=== PATIENT | female | born 1990 ===

== ENCOUNTER 2019-09-11 07:43 | Observation (INO) | payer MEDICAID ==
[2019-09-11 08:34] LABS: Basophils % (Auto) 0.3 % (0.0-1.8); Eosinophils # (Auto) 0.1 K/mm3 (0.0-0.4); Eosinophils % (Auto) 1.7 % (0.0-4.3); Hematocrit 33.3 % (30.3-42.9); Lymphocytes # (Auto) 0.9 K/mm3 (1.2-5.4); Lymphocytes % (Auto) 15.9 % (13.4-35.0); Mean Corpuscular HGB Conc 33 % (30-34); Mean Corpuscular Volume 87 fl (79-97); Monocytes # (Auto) 0.4 K/mm3 (0.0-0.8); Platelet Count 271 K/mm3 (140-440); Red Blood Count 3.85 M/mm3 (3.65-5.03); Red Cell Distribution Width 14.3 % (13.2-15.2)
[2019-09-11 08:35] LABS: Bacteria,Urine 1+ /HPF (Negative); Bilirubin,Urine NEG (Negative); Blood,Urine MOD (Negative); Color,Urine Yellow (Yellow); Mucus,Urine 3+ /HPF; Urobilinogen,Urine < 2.0 mg/dL (<2.0)
--- NOTE | 2019-09-11 08:49 | Event Note ---
Date of service: 09/11/19 Face to Face: 29-year-old female, reportedly G3, P2, morbidly obese, presenting with right flank pain, nausea, dysuria, appears to be quite uncomfortable, vaginal bleeding, suspicious for pyelonephritis. Laboratory studies reviewed and appreciated. Ultrasound reviewed and appreciated. Recommend admission for IV antibiotics, pain control, symptom control. Discussed with physician shampoo assistant, admission has been arranged. Discussed plan of care with patient, who is amenable. Right upper quadrant ultrasound, right-sided kidney ultrasound negative for acute findings. Vital Signs 09/11/19 09/11/19 09/11/19 07:50 09:48 10:38 Temperature 97.8 F Pulse Rate 85 Respiratory 20 22 18 Rate Blood Pressure 116/73 Blood Pressure [Right] O2 Sat by Pulse 100 Oximetry 09/11/19 11:00 Temperature Pulse Rate 80 Respiratory 16 Rate Blood Pressure Blood Pressure 110/68 [Right] O2 Sat by Pulse 98 Oximetry Lab Results 09/11/19 09/11/19 09/11/19 Range/Units 08:09 08:09 08:09 WBC 5.9 (4.5-11.0) K/mm3 RBC 3.85 (3.65-5.03) M/mm3 Hgb 11.0 (10.1-14.3) gm/dl Hct 33.3 (30.3-42.9) % MCV 87 (79-97) fl MCH 29 (28-32) pg MCHC 33 (30-34) % RDW 14.3 (13.2-15.2) % Plt Count 271 (140-440) K/mm3 Lymph % (Auto) 15.9 (13.4-35.0) % [place] % (Auto) 7.0 (0.0-7.3) % Eos % (Auto) 1.7 (0.0-4.3) % Baso % (Auto) 0.3 (0.0-1.8) % Lymph # 0.9 L (1.2-5.4) K/mm3 [place] # 0.4 (0.0-0.8) K/mm3 Eos # 0.1 (0.0-0.4) K/mm3 Baso # 0.0 (0.0-0.1) K/mm3 Seg Neutrophils % 75.1 H (40.0-70.0) % Seg Neutrophils # 4.5 (1.8-7.7) K/mm3 Sodium (137-145) mmol/L Potassium (3.6-5.0) mmol/L Chloride (98-107) mmol/L Carbon Dioxide (22-30) mmol/L Anion Gap mmol/L BUN (7-17) mg/dL Creatinine (0.7-1.2) mg/dL Estimated GFR ml/min BUN/Creatinine Ratio % Glucose (65-100) mg/dL Lactic Acid (0.7-2.0) mmol/L Calcium (8.4-10.2) mg/dL Magnesium (1.7-2.3) mg/dL Total Bilirubin (0.1-1.2) mg/dL Direct Bilirubin (0-0.2) mg/dL Indirect Bilirubin mg/dL AST (5-40) units/L ALT (7-56) units/L Alkaline Phosphatase (35-129) units/L Total Creatine Kinase (30-135) units/L Total Protein (6.3-8.2) g/dL Albumin (3.9-5) g/dL Albumin/Globulin Ratio % HCG, Quant 45377 H (0-4) mIU/mL Urine Color (Yellow) Urine Turbidity (Clear) Urine pH (5.0-7.0) Ur Specific [place] (1.003-1.030) Urine Protein (Negative) mg/dL Urine Glucose (UA) (Negative) mg/dL Urine Ketones (Negative) mg/dL Urine Blood (Negative) Urine Nitrite (Negative) Urine Bilirubin (Negative) Urine Urobilinogen (<2.0) mg/dL Ur Leukocyte Esterase (Negative) Urine WBC (Auto) (0.0-6.0) /HPF Urine RBC (Auto) (0.0-6.0) /HPF U Epithel Cells (Auto) (0-13.0) /HPF Urine Bacteria (Auto) (Negative) /HPF Ur Transition Epith Cell /HPF Urine Mucus /HPF Blood Type A POSITIVE 09/11/19 09/11/19 09/11/19 Range/Units 08:10 09:02 10:23 WBC (4.5-11.0) K/mm3 RBC (3.65-5.03) M/mm3 Hgb (10.1-14.3) gm/dl Hct (30.3-42.9) % MCV (79-97) fl MCH (28-32) pg MCHC (30-34) % RDW (13.2-15.2) % Plt Count (140-440) K/mm3 Lymph % (Auto) (13.4-35.0) % Sierra % (Auto) (0.0-7.3) % Eos % (Auto) (0.0-4.3) % Baso % (Auto) (0.0-1.8) % Lymph # (1.2-5.4) K/mm3 [place] # (0.0-0.8) K/mm3 Eos # (0.0-0.4) K/mm3 Baso # (0.0-0.1) K/mm3 Seg Neutrophils % (40.0-70.0) % Seg Neutrophils # (1.8-7.7) K/mm3 Sodium 136 L (137-145) mmol/L Potassium 3.9 (3.6-5.0) mmol/L Chloride 102.8 (98-107) mmol/L Carbon Dioxide 21 L (22-30) mmol/L Anion Gap 16 mmol/L BUN 9 (7-17) mg/dL Creatinine 0.6 L (0.7-1.2) mg/dL Estimated GFR > 60 ml/min BUN/Creatinine Ratio 15 % Glucose 87 (65-100) mg/dL Lactic Acid (0.7-2.0) mmol/L Calcium 9.2 (8.4-10.2) mg/dL Magnesium 1.90 (1.7-2.3) mg/dL Total Bilirubin < 0.20 (0.1-1.2) mg/dL Direct Bilirubin < 0.2 (0-0.2) mg/dL Indirect Bilirubin 0.0 mg/dL AST 11 (5-40) units/L ALT 7 (7-56) units/L Alkaline Phosphatase 44 (35-129) units/L Total Creatine Kinase 103 (30-135) units/L Total Protein 6.1 L (6.3-8.2) g/dL Albumin 3.3 L (3.9-5) g/dL Albumin/Globulin Ratio 1.2 % HCG, Quant (0-4) mIU/mL Urine Color Yellow (Yellow) Urine Turbidity Slightly-cloudy (Clear) Urine pH 9.0 H (5.0-7.0) Ur Specific [place] 1.018 (1.003-1.030) Urine Protein 100 mg/dl (Negative) mg/dL Urine Glucose (UA) Neg (Negative) mg/dL Urine Ketones Neg (Negative) mg/dL Urine Blood Mod (Negative) Urine Nitrite Neg (Negative) Urine Bilirubin Neg (Negative) Urine Urobilinogen < 2.0 (<2.0) mg/dL Ur Leukocyte Esterase Mod (Negative) Urine WBC (Auto) 134.0 H (0.0-6.0) /HPF Urine RBC (Auto) 93.0 (0.0-6.0) /HPF U Epithel Cells (Auto) 6.0 (0-13.0) /HPF Urine Bacteria (Auto) 1+ (Negative) /HPF Ur Transition Epith Cell 1 /HPF Urine Mucus 3+ /HPF Blood Type 09/11/19 Range/Units 10:23 WBC (4.5-11.0) K/mm3 RBC (3.65-5.03) M/mm3 Hgb (10.1-14.3) gm/dl Hct (30.3-42.9) % MCV (79-97) fl MCH (28-32) pg MCHC (30-34) % RDW (13.2-15.2) % Plt Count (140-440) K/mm3 Lymph % (Auto) (13.4-35.0) % Sierra % (Auto) (0.0-7.3) % Eos % (Auto) (0.0-4.3) % Baso % (Auto) (0.0-1.8) % Lymph # (1.2-5.4) K/mm3 [place] # (0.0-0.8) K/mm3 Eos # (0.0-0.4) K/mm3 Baso # (0.0-0.1) K/mm3 Seg Neutrophils % (40.0-70.0) % Seg Neutrophils # (1.8-7.7) K/mm3 Sodium (137-145) mmol/L Potassium (3.6-5.0) mmol/L Chloride (98-107) mmol/L Carbon Dioxide (22-30) mmol/L Anion Gap mmol/L BUN (7-17) mg/dL Creatinine (0.7-1.2) mg/dL Estimated GFR ml/min BUN/Creatinine Ratio % Glucose (65-100) mg/dL Lactic Acid 1.80 (0.7-2.0) mmol/L Calcium (8.4-10.2) mg/dL Magnesium (1.7-2.3) mg/dL Total Bilirubin (0.1-1.2) mg/dL Direct Bilirubin (0-0.2) mg/dL Indirect Bilirubin mg/dL AST (5-40) units/L ALT (7-56) units/L Alkaline Phosphatase (35-129) units/L Total Creatine Kinase (30-135) units/L Total Protein (6.3-8.2) g/dL Albumin (3.9-5) g/dL Albumin/Globulin Ratio % HCG, Quant (0-4) mIU/mL Urine Color (Yellow) Urine Turbidity (Clear) Urine pH (5.0-7.0) Ur Specific [place] (1.003-1.030) Urine Protein (Negative) mg/dL Urine Glucose (UA) (Negative) mg/dL Urine Ketones (Negative) mg/dL Urine Blood (Negative) Urine Nitrite (Negative) Urine Bilirubin (Negative) Urine Urobilinogen (<2.0) mg/dL Ur Leukocyte Esterase (Negative) Urine WBC (Auto) (0.0-6.0) /HPF Urine RBC (Auto) (0.0-6.0) /HPF U Epithel Cells (Auto) (0-13.0) /HPF Urine Bacteria (Auto) (Negative) /HPF Ur Transition Epith Cell /HPF Urine Mucus /HPF Blood Type Print Report Referring Physician: VENKAT LYNN Patient Name: PHILIPPE SERRANO Date of : 1990 Sex: Female Report Date: 2019-09-11 Report Status: Finalized Findings [facility] [address] [place] [address] Ultrasound Report Signed Patient: PHILIPPE SERRANO MR#: [id number] : 1990 Acct:[id number] Age/Sex: 29 / F ADM Date: 09/11/19 Loc: ED Attending Dr: Ordering Physician: RAFFY LINDA Date of Service: 09/11/19 Procedure(s): US OB >= 14 weeks Fetus Accession Number(s): [id number] cc: RAFFY LINDA OB ULTRASOUND >= 14 WEEKS FETUS INDICATION: Vaginal bleeding for 2 days, pelvic pain COMPARISON: None TECHNIQUE: Transabdominal imaging. FINDINGS: A single gestation intrauterine is present with cephalic presentation. The placenta is anterior, grade 1 and free of the cervical os. heart tones measure 149 bpm. The cervix measures 3.8 cm. Qualitative amniotic fluid volume is normal. anatomical survey was not performed. Biparietal diameter is 4.3 cm which equals 19 weeks 0 days. Head circumference is 16.8 cm which equals 19 weeks 3 days. Abdominal circumference is 13.9 cm which equals 19 weeks 2 days. Femur length is 3.0 cm which equals 19 weeks 2 days. Overall estimated sonographic age is 19 weeks 2 days. HC/AC ratio: 1.21 Cephalic index: 79.7 Estimated weight 284 g. IMPRESSION: Viable single intrauterine as described. No acute abnormality is detected. Signer Name: Prashanth Rothman Jr, MD Signed: 09/11/2019 10:50 AM Workstation Name: [id number] Transcribed By: TTR Dictated By: PRASHANTH ROTHMAN JR, MD Electronically Authenticated By: PRASHANTH ROTHMAN JR, MD Signed Date/Time: 09/11/19 2561
[2019-09-11] MEDS ORDERED: ACETAMINOPEN W/CODEINE 120-12MG ORAL LIQD 5 ML PO ONE (08:56)
[2019-09-11] MEDS ORDERED: SODIUM CHLORIDE 0.9% 1000 ML 1,000 ML IV ONE (08:56)
--- NOTE | 2019-09-11 09:13 | Emergency Department Report ---
ED HPI - General Chief complaint: Vaginal Bleeding Stated complaint: UTI Time Seen by Provider: 09/11/19 08:49 Source: patient Mode of arrival: Wheelchair Limitations: No Limitations - History of Present Illness Initial comments: This is a 29-year-old female at approximately 18 weeks gestation who presents to the ED complaining of pelvic pain that started about a week ago and vaginal spotting that began yesterday.. Patient states that about a week ago she started experiencing some pelvic pain which she does not wear ligament pain but pain got worse yesterday when she started noticing mild vaginal spotting. Patient is followed by [facility] Dr. Jaja Wiseman. Patient is unsure of her last menstrual period as she was on Depo-Provera to getting . Patient states that her last ultrasound was a first trimester trimester ultrasound which was normal. She had no complications with her past 2 pregnancies. Patient denies fevers/chills/nausea vomiting/dysuria - Related Data Allergies Allergy/AdvReac Type Severity Reaction Status Date / Time No Known Allergies Allergy Unverified 09/11/19 07:44 ED Review of Systems ROS: Stated complaint: UTI Other details as noted in HPI Comment: All other systems reviewed and negative ED Past Medical Hx - Past Medical History Previous Medical History?: No - Surgical History Past Surgical History?: No - Social History Smoking Status: Current Every Day Smoker Substance Use Type: None ED Physical Exam - General Limitations: No Limitations General appearance: alert, in no apparent distress - Head Head exam: Present: atraumatic, normocephalic - Eye Eye exam: Present: normal appearance - ENT ENT exam: Present: mucous membranes moist - Neck Neck exam: Present: normal inspection - Respiratory Respiratory exam: Present: normal lung sounds bilaterally. Absent: respiratory distress - Cardiovascular Cardiovascular Exam: Present: regular rate, normal rhythm. Absent: systolic murmur, diastolic murmur, rubs, gallop - GI/Abdominal GI/Abdominal exam: Present: soft, normal bowel sounds - Extremities Exam Extremities exam: Present: normal inspection - Back Exam Back exam: Present: normal inspection, full ROM, CVA tenderness (R), CVA tenderness (L) - Neurological Exam Neurological exam: Present: alert, oriented X3, normal gait - Psychiatric Psychiatric exam: Present: normal affect, normal mood - Skin Skin exam: Present: warm, dry, intact, normal color. Absent: rash ED Course Vital Signs 09/11/19 09/11/19 09/11/19 07:50 09:48 10:38 Temperature 97.8 F Pulse Rate 85 Respiratory 20 22 18 Rate Blood Pressure 116/73 Blood Pressure [Right] O2 Sat by Pulse 100 Oximetry 09/11/19 11:00 Temperature Pulse Rate 80 Respiratory 16 Rate Blood Pressure Blood Pressure 110/68 [Right] O2 Sat by Pulse 98 Oximetry - Reevaluation(s) Reevaluation #1: 09/11/19 10:14 Patient is currently receiving fluids, pain medication. - Consultations Consultation #1: 09/11/19 11:[address] Soler consulted and agreed to accept patient to his service. ED Medical Decision Making - Lab Data Result diagrams: 09/11/19 08:09 09/11/19 09:02 Laboratory Last Values WBC 5.9 K/mm3 (4.5-11.0) 09/11/19 08:09 RBC 3.85 M/mm3 (3.65-5.03) 09/11/19 08:09 Hgb 11.0 gm/dl (10.1-14.3) 09/11/19 08:09 Hct 33.3 % (30.3-42.9) 09/11/19 08:09 MCV 87 fl (79-97) 09/11/19 08:09 MCH 29 pg (28-32) 09/11/19 08:09 MCHC 33 % (30-34) 09/11/19 08:09 RDW 14.3 % (13.2-15.2) 09/11/19 08:09 Plt Count 271 K/mm3 (140-440) 09/11/19 08:09 Lymph % (Auto) 15.9 % (13.4-35.0) 09/11/19 08:09 [place] % (Auto) 7.0 % (0.0-7.3) 09/11/19 08:09 Eos % (Auto) 1.7 % (0.0-4.3) 09/11/19 08:09 Baso % (Auto) 0.3 % (0.0-1.8) 09/11/19 08:09 Lymph # 0.9 K/mm3 (1.2-5.4) L 09/11/19 08:09 [place] # 0.4 K/mm3 (0.0-0.8) 09/11/19 08:09 Eos # 0.1 K/mm3 (0.0-0.4) 09/11/19 08:09 Baso # 0.0 K/mm3 (0.0-0.1) 09/11/19 08:09 Seg Neutrophils % 75.1 % (40.0-70.0) H 09/11/19 08:09 Seg Neutrophils # 4.5 K/mm3 (1.8-7.7) 09/11/19 08:09 Sodium 136 mmol/L (137-145) L 09/11/19 09:02 Potassium 3.9 mmol/L (3.6-5.0) 09/11/19 09:02 Chloride 102.8 mmol/L (98-107) 09/11/19 09:02 Carbon Dioxide 21 mmol/L (22-30) L 09/11/19 09:02 Anion Gap 16 mmol/L 09/11/19 09:02 BUN 9 mg/dL (7-17) 09/11/19 09:02 Creatinine 0.6 mg/dL (0.7-1.2) L 09/11/19 09:02 Estimated GFR > 60 ml/min 09/11/19 09:02 BUN/Creatinine Ratio 15 % 09/11/19 09:02 Glucose 87 mg/dL (65-100) 09/11/19 09:02 Calcium 9.2 mg/dL (8.4-10.2) 09/11/19 09:02 HCG, Quant 07067 mIU/mL (0-4) H 09/11/19 08:09 Urine Color Yellow (Yellow) 09/11/19 08:10 Urine Turbidity Slightly-cloudy (Clear) 09/11/19 08:10 Urine pH 9.0 (5.0-7.0) H 09/11/19 08:10 Ur Specific [place] 1.018 (1.003-1.030) 09/11/19 08:10 Urine Protein 100 mg/dl mg/dL (Negative) 09/11/19 08:10 Urine Glucose (UA) Neg mg/dL (Negative) 09/11/19 08:10 Urine Ketones Neg mg/dL (Negative) 09/11/19 08:10 Urine Blood Mod (Negative) 09/11/19 08:10 Urine Nitrite Neg (Negative) 09/11/19 08:10 Urine Bilirubin Neg (Negative) 09/11/19 08:10 Urine Urobilinogen < 2.0 mg/dL (<2.0) 09/11/19 08:10 Ur Leukocyte Esterase Mod (Negative) 09/11/19 08:10 Urine WBC (Auto) 134.0 /HPF (0.0-6.0) H 09/11/19 08:10 Urine RBC (Auto) 93.0 /HPF (0.0-6.0) 09/11/19 08:10 U Epithel Cells (Auto) 6.0 /HPF (0-13.0) 09/11/19 08:10 Urine Bacteria (Auto) 1+ /HPF (Negative) 09/11/19 08:10 Ur Transition Epith Cell 1 /HPF 09/11/19 08:10 Urine Mucus 3+ /HPF 09/11/19 08:10 Blood Type A POSITIVE 09/11/19 08:09 - Radiology Data Radiology results: report reviewed, image reviewed TECHNIQUE: Transabdominal imaging. FINDINGS: A single gestation intrauterine is present with cephalic presentation. The placenta is anterior, grade 1 and free of the cervical os. heart tones measure 149 bpm. The cervix measures 3.8 cm. Qualitative amniotic fluid volume is normal. anatomical survey was not performed. Biparietal diameter is 4.3 cm which equals 19 weeks 0 days. Head circumference is 16.8 cm which equals 19 weeks 3 days. Abdominal circumference is 13.9 cm which equals 19 weeks 2 days. Femur length is 3.0 cm which equals 19 weeks 2 days. Overall estimated sonographic age is 19 weeks 2 days. HC/AC ratio: 1.21 Cephalic index: 79.7 Estimated weight 284 g. IMPRESSION: Viable single intrauterine as described. No acute abnormality is detected. Signer Name: Prashanth Rothman Jr, MD Signed: 09/11/2019 10:50 AM Workstation Name: [id number] Transcribed By: TTR Dictated By: PRASHANTH ROTHMAN JR, MD Electronically Authenticated By: PRASHANTH ROTHMAN JR, MD Signed Date/Time: 09/11/19 1050 - Medical Decision Making This 29-year-old female presents with pelvic pain in posttussis secondary to acute cystitis/pyelonephritis CBC, BMP within normal limits, urinalysis positive for infection. She is uncomfortable to ED stay complaining of pelvic pain. Patient received pain medication and ED. Case was discussed with Dr. Ariza was suggested admission patient to OB service for observation. - Differential Diagnosis UTI, pyelonephritis, placenta abruption, round ligament pain, placenta prev Critical care attestation.: If time is entered above; I have spent that time in minutes in the direct care of this critically ill patient, excluding procedure time. ED Disposition Clinical Impression: Acute pyelonephritis in second trimester, antepartum, Acute cystitis during , Pelvic pain during in second trimester, antepartum Disposition: 09 OP ADMIT IP TO THIS HOSP Is pt being admited?: Yes Does the pt Need Aspirin: No Condition: Stable
[2019-09-11 09:32] LABS: BUN/Creatinine Ratio 15; Blood Urea Nitrogen 9 mg/dL (7-17); Calcium 9.2 mg/dL (8.4-10.2); Hemolysis Index 6
[2019-09-11] MEDS ORDERED: ONDANSETRON 4 MG/2 ML INJ IV ONE (10:05)
[2019-09-11] MEDS ORDERED: MORPHINE 4 MG/1 ML INJ IV ONE ×3 (10:05→23:17)
[2019-09-11] MEDS ORDERED: cefTRIAXone/NS 1 GM/50 ML 1 GM/50 ML BAG IV ONE (10:10)
--- NOTE | 2019-09-11 10:54 | Ultrasound Report ---
OB ULTRASOUND >= 14 WEEKS FETUS INDICATION: Vaginal bleeding for 2 days, pelvic pain COMPARISON: None TECHNIQUE: Transabdominal imaging. FINDINGS: A single gestation intrauterine is present with cephalic presentation. The placenta is ante rior, grade 1 and free of the cervical os. heart tones measure 149 bpm. The cervix measures 3. 8 cm. Qualitative amniotic fluid volume is normal. anatomical survey was not performed. Biparietal diameter is 4.3 cm which equals 19 weeks 0 days. Head circumference is 16.8 cm which equals 19 weeks 3 days. Abdominal circumference is 13.9 cm which equals 19 weeks 2 days. Femur length is 3.0 cm which equals 19 weeks 2 days. Overall estimated sonographic age is 19 weeks 2 days. HC/AC ratio: 1.21 Cephalic index: 79.7 Estimated weight 284 g. IMPRESSION: Viable single intrauterine as described. No acute abnormality is detected. Signer Name: Prashanth Rothman Jr, MD Signed: 09/11/2019 10:50 AM Workstation Name: [id number]
[2019-09-11 11:09] LABS: Alanine Aminotransferase 7 units/L (7-56); Albumin 3.3 g/dL (3.9-5)
[2019-09-11 11:16] LABS: Bilirubin,Direct < 0.2 mg/dL (0-0.2)
--- NOTE | 2019-09-11 13:23 | Short Stay Summary ---
Short Stay Documentation Date of service: 09/11/19 Narrative H&P: Pt is a 29yo BF LMP ? unknown 19 weeks by u/s today who presents to the ED complaining of pelvic pain that started about a week ago and vaginal spotting that began yesterday.. Patient states that about a week ago she started experiencing some pelvic pain which she thought was due to ligament pain but pain got worse yesterday when she started noticing mild vaginal spotting. Her [facility] [employer] CO[employer]IN[facility] is Dr. Jaja Ramirez. She is unsure of her last menstrual period as she was on Depo-Provera prior to getting . Patient states that her last ultrasound was a first trimester trimester ultrasound which was normal. She had no complications with her past 2 pregnancies, and she denies fevers/chills/nausea vomiting/dysuria. Renal u/s was Negative. Laboratory Tests 09/11/19 09/11/19 09/11/19 08:09 08:09 08:09 WBC 5.9 RBC 3.85 Hgb 11.0 Hct 33.3 MCV 87 MCH 29 MCHC 33 RDW 14.3 Plt Count 271 Lymph % (Auto) 15.9 [place] % (Auto) 7.0 Eos % (Auto) 1.7 Baso % (Auto) 0.3 Lymph # 0.9 L [place] # 0.4 Eos # 0.1 Baso # 0.0 Seg Neutrophils % 75.1 H Seg Neutrophils # 4.5 Sodium Potassium Chloride Carbon Dioxide Anion Gap BUN Creatinine Estimated GFR BUN/Creatinine Ratio Glucose Lactic Acid Calcium Magnesium Total Bilirubin Direct Bilirubin Indirect Bilirubin AST ALT Alkaline Phosphatase Total Creatine Kinase Total Protein Albumin Albumin/Globulin Ratio HCG, Quant 25592 H Urine Color Urine Turbidity Urine pH Ur Specific [place] Urine Protein Urine Glucose (UA) Urine Ketones Urine Blood Urine Nitrite Urine Bilirubin Urine Urobilinogen Ur Leukocyte Esterase Urine WBC (Auto) Urine RBC (Auto) U Epithel Cells (Auto) Urine Bacteria (Auto) Ur Transition Epith Cell Urine Mucus Blood Type A POSITIVE 09/11/19 09/11/19 09/11/19 08:10 09:02 10:23 WBC RBC Hgb Hct MCV MCH MCHC RDW Plt Count Lymph % (Auto) [place] % (Auto) Eos % (Auto) Baso % (Auto) Lymph # [place] # Eos # Baso # Seg Neutrophils % Seg Neutrophils # Sodium 136 L Potassium 3.9 Chloride 102.8 Carbon Dioxide 21 L Anion Gap 16 BUN 9 Creatinine 0.6 L Estimated GFR > 60 BUN/Creatinine Ratio 15 Glucose 87 Lactic Acid Calcium 9.2 Magnesium 1.90 Total Bilirubin < 0.20 Direct Bilirubin < 0.2 Indirect Bilirubin 0.0 AST 11 ALT 7 Alkaline Phosphatase 44 Total Creatine Kinase 103 Total Protein 6.1 L Albumin 3.3 L Albumin/Globulin Ratio 1.2 HCG, Quant Urine Color Yellow Urine Turbidity Slightly-cloudy Urine pH 9.0 H Ur Specific [place] 1.018 Urine Protein 100 mg/dl Urine Glucose (UA) Neg Urine Ketones Neg Urine Blood Mod Urine Nitrite Neg Urine Bilirubin Neg Urine Urobilinogen < 2.0 Ur Leukocyte Esterase Mod Urine WBC (Auto) 134.0 H Urine RBC (Auto) 93.0 U Epithel Cells (Auto) 6.0 Urine Bacteria (Auto) 1+ Ur Transition Epith Cell 1 Urine Mucus 3+ Blood Type 09/11/19 10:23 WBC RBC Hgb Hct MCV MCH MCHC RDW Plt Count Lymph % (Auto) [place] % (Auto) Eos % (Auto) Baso % (Auto) Lymph # [place] # Eos # Baso # Seg Neutrophils % Seg Neutrophils # Sodium Potassium Chloride Carbon Dioxide Anion Gap BUN Creatinine Estimated GFR BUN/Creatinine Ratio Glucose Lactic Acid 1.80 Calcium Magnesium Total Bilirubin Direct Bilirubin Indirect Bilirubin AST ALT Alkaline Phosphatase Total Creatine Kinase Total Protein Albumin Albumin/Globulin Ratio HCG, Quant Urine Color Urine Turbidity Urine pH Ur Specific [place] Urine Protein Urine Glucose (UA) Urine Ketones Urine Blood Urine Nitrite Urine Bilirubin Urine Urobilinogen Ur Leukocyte Esterase Urine WBC (Auto) Urine RBC (Auto) U Epithel Cells (Auto) Urine Bacteria (Auto) Ur Transition Epith Cell Urine Mucus Blood Type - History Principal diagnosis: IUP @ 19 weeks; Pyelonephritis H&P: obtained from office Past Medical History: other (Sciatica; pinched nerve) Past Surgical History: No surgical history Social history: no significant social history, single - Allergies and Medications Current Medications: Allergies No Known Allergies Allergy (Unverified 09/11/19 07:44) Home Medications Medication Instructions Recorded Confirmed Last Taken Type No Known Home Medications [No 09/11/19 09/11/19 Unknown History Reported Home Medications] - Physical exam General appearance: mild distress Integumentary: no rash HEENT: Atraumatic Lungs: Clear to auscultation Breasts: deferred Heart: Regular rate Gastrointestinal: normal Female Genitourinary: deferred Rectal Exam: deferred Extremities: no ischemia, No edema Neurological: Normal speech - Hospital course Hospital course: Pt was admitted and begun on IV Ancef and PO Percocet, and stated she was not feeling much better but she had to go home due to child & adolescent psychiatrist issues. She was going to sign out AMA, but she wouldn't have prescriptions. She states she will follow up with Dr Jaja Ramirez [facility] - she already called her office, but Dr Ramirez was at the hospital. - Disposition Condition at discharge: Stable Disposition: DC-01 TO HOME OR SELFCARE - Discharge Diagnoses (1) Acute cystitis during Status: Resolved Qualifiers: Trimester: third trimester Qualified Code(s): O23.13 - Infections of bladder in , third trimester (2) Pelvic pain during in second trimester, antepartum Status: Chronic Short Stay Discharge Plan Activity: no restrictions Diet: regular Additional Instructions: Call your doctor immediately for: * Fever > 100.5 * Heavy vaginal bleeding ( >1 pad per hour) * Severe persistent headache * Shortness of breath * Reddened, hot, painful area to leg or breast Follow up with: PRIMARY CAREMD [Primary Care Provider] - 7 Days JAJA RAMIREZ MD [Referring] - 3 Days Forms: [facility] Discharge Summary Prescriptions: oxyCODONE /ACETAMINOPHEN [Percocet 5/325 mg] 1 tab PO Q6H PRN #30 tablet PRN Reason: Pain, Moderate (4-6) Promethazine [Phenergan] 25 mg PO Q8HR PRN #30 tab PRN Reason: Nausea
[2019-09-11] MEDS ORDERED: MORPHINE 2 MG/1 ML INJ ONE (13:40)
--- NOTE | 2019-09-11 14:19 | Ultrasound Report ---
LIMITED RUQ ABDOMINAL ULTRASOUND ULTRASOUND RENAL RIGHT INDICATION: right flank pain. COMPARISON: No relevant prior imaging study available. FINDINGS: Pancreas: Visualized portions show no significant abnormality. Abdominal Aorta: No significant abnormality. IVC: No significant abnormality. Liver: The liver measures 16.9 cm in length. No significant abnormality. Normal hepatopedal blood fl ow in the main portal vein. Gallbladder: No significant abnormality. Bile ducts: No significant abnormality. Common bile duct measures 3.5 mm. Right kidney: The right kidney is normal size, contour and echotexture measuring 10.3 cm in length wi th cortical thickness of 1.7 cm. No focal renal lesion or hydronephrosis.. Free fluid: None. Additional Findings: None. IMPRESSION: Unremarkable right upper quadrant ultrasound. Unremarkable ultrasound of the right kidney.. Signer Name: Prashanth Rothman Jr, MD Signed: 09/11/2019 2:14 PM Workstation Name: [id number]
[2019-09-11] MEDS: oxyCODONE /ACETAMINOPHEN 5-325MG TAB PO PRN ×2 (15:41→21:08)
[2019-09-11] MEDS ORDERED: DOCUSATE SODIUM 100 MG CAP PO PRN (18:25)
[2019-09-11] MEDS ORDERED: ACETAMINOPHEN 325 MG TAB PO PRN (18:25)
[2019-09-11] MEDS ORDERED: BICITRA ORAL LIQD 30ML PO ONE (18:28)
[2019-09-11] MEDS: LACTATED RINGERS 1,000 ML IV SCH (21:10)
[2019-09-11] MEDS ORDERED: ONDANSETRON 4 MG/2 ML INJ IV PRN (22:58)
[2019-09-11] MEDS ORDERED: ALUM-MAG HYDROXIDE-SIMETHICONE 200-200-20MG/5ML ORAL LIQD 30 ML PO PRN (23:01)
[2019-09-12] MEDS: ceFAZolin/NS 1 GM/50 ML 1 GM/50 ML BAG IV SCH ×2 (03:10→09:03)
[2019-09-12] MEDS: oxyCODONE /ACETAMINOPHEN 5-325MG TAB PO PRN ×2 (03:17→09:03)
[2019-09-12] MEDS: LACTATED RINGERS 1,000 ML IV SCH (05:10)
[2019-09-12] MEDS ORDERED: PRENATAL VIT27-FE FUMARATE-FOLIC ACID VIT TAB PO SCH (10:00)
[2019-09-12 11:57] VITALS: BP 108/57
[2019-09-12] MEDS ORDERED: FLU VACC QUAD 2019-20 (3 YR UP)/PF 60 MCG/0.5 ML SYRINGE IM ONE (12:00)
== END 2019-09-12 12:50 | disposition home or self-care (01) ==
LOC: ED 07:43 → OB 12:58
PROVIDERS: ADMIT Obstetrics & Gynecology; ATTEND Obstetrics & Gynecology
DX: O23.02 Infections of kidney in pregnancy, second trimester (principal); O23.12 Infections of bladder in pregnancy, second trimester; O46.92 Antepartum hemorrhage, unspecified, second trimester; R10.2 Pelvic and perineal pain; O99.332 Smoking (tobacco) complicating pregnancy, second trimester; Z3A.18 18 weeks gestation of pregnancy
CPT/HCPCS: 36415; 76705; 76775; 76805; 80048; 80076; 81001; 82140; 82550; 83735; 84702; 85025; 86900; 86901; 90686; 96365; 96366; 96367; 96375; 96376; 99284; G0378; J0690; J0696; J2270; J2405; J7030; J7120